=== PATIENT | female | born 1980 | race Caucasian/White ===

== ENCOUNTER 2018-06-19 20:23 | Emergency (ER) | payer SELFPAY ==
[2018-06-19 20:31] VITALS: BP 114/75; PULSE 71; RESP 20; TEMP 37; O2SAT 100
--- NOTE | 2018-06-19 20:58 | DI.RAD_ITS ---
SYMPTOMS/DIAGNOSIS: FALL, RT SIDED PAIN SACRUM AND COCCYX: No acute fracture or dislocation is seen. IMPRESSION: No acute abnormality. AP PELVIS: No bone or joint abnormality is identified. The soft tissues are unremarkable. IMPRESSION: Negative examination.
--- NOTE | 2018-06-19 21:09 | ED.GENADUL_ITS ---
Discharge Plan Disposition Patient Disposition: HOME Condition: Improving Discharge Details Chief Complaint: Nk/Back Pain Clinical Impression: Back pain, Sacroiliac joint pain, Back contusion Primary Care Provider: Ava Fay ED Provider: Julita Canela Home Meds and New Rx's Prescriptions: New cyclobenzaprine 10 mg tablet 10 mg PO TID PRN (Reason: muscle spasm) Qty: 7 RF: 0 ibuprofen 600 mg tablet 600 mg PO QID PRN (Reason: pain) Qty: 20 RF: 0 Continued PNV cmb#95-ferrous fumarate-FA [] 1 EACH tablet 1 ea PO DAILY RF: 0 ranitidine HCl 75 MG tablet 75 mg PO PRN RF: 0 cholecalciferol (vitamin D3) [Vitamin D3] 2,000 UNIT capsule 2,000 unit PO DAILY RF: 0 levothyroxine 50 MCG tablet 50 mcg PO DAILY Qty: 90 RF: 4 Discharge Instructions Instructions: Contusion in Adults (ED), Back Pain (ED) Additional Instructions: Encourage hydration. Gentle stretching and frequent ambulation to help with spasm. Tylenol 1000mg every 6 hours as needed for discomfort, Ibuprofen 600mg as needed every 6 hours. Flexeril as prescribed to help with muscle spasm. Heat or ice to affected area. Salonpas or Lidoderm patches to affected areas, these are available over the counter. If you develop increased pain, fevers/chills, altered sensation, change in bowel or bladder habits, weakness in lower legs or other new/worsening symptoms please seek care urgently once again. Follow up in one week if not improved with primary care. Stand Alone Forms: Work Release Referrals: Ava Fay [Primary Care Provider] - Discharge Data Discharge Date/Time-TO BE ENTERED AT DEPARTURE: 06/19/18 22:39 Medical Decision Making Patient is a 37 year old female, accompanied by , with c/c of right sided back pain after fall this morning. STates that at 0800 this AM she was going down a steep flight of steps while carrying her . States that she slipped on her socks and fell backward landing on the right side of her midback. Patient has midback pain, right buttock pain that can radiate into the proximal posterior right thigh. States that her pain persisted throughout the day. Took Tylenol this AM with some relief of her discomfort. denies incontinence or feeling of urinary retention, no difficulty with BM after fall. Denies abdomenal pain. Did not strike her head, no LOC. Denies neck pain. Denies altered sensation or weakness in LE. No difficulty with ambulation. On exam, patient has maximal tenderness over the sacrum and right SI joint. Neuro exam is intact. No saddle paresthesias. Strength 5/5 in bilateral lower extremities. Reflexes equal bilateral LE. Pain is fairly diffuse with maximal pain as note previously. Patient ambulating normally. Will give Ibuprofen and Lidoderm patch to help with discomfort. Ecchymosis noted on buttock L>R side. Will obtain xr of sacrum/coccyx and pelvis. XR reviewed by radiologist: XR sacrum and coccyx: FINDINGS: Bones/joints: No acute fractures identified. Alignment is within normal limits. Joint space is are preserved. Soft tissues: Unremarkable as seen. IMPRESSION: No acute findings. XR pelvis: FINDINGS: Bones/joints: No fracture or dislocation. Joint spaces are preserved. Soft tissues: Unremarkable as seen. IMPRESSION: No acute findings. Post void residual 0. Patient, her and I discussed findings. No neurologic deficits noted, no evidence of cauda equina. Advised that history is likely associated with contustions. Patient reports that pain is improving but persists. She was offered stronger pain medication but declines at this time. She is ambulating well. Encouraged gentle stretching and frequent ambulation. She was given strict return precautions. Advised on home remedies and OTC medications to help with symptomatic management. Advised f/u with PCP. All of her questions and concerns were addressed, she is in agreement with this plan. [facility] General Mode of arrival: ambulatory . Date/Time Provider Initiated Documentation: 06/19/18 20:24 . Limitations to Documentation: no limitations . Information obtained by: patient and family () . History of Present Illness 37 year old F presents to the emergency department with the chief complaint of right sided back pain, described as moderate, with intensity rated at 6. Quality is described as aching, and is localized to the back. Patient distal (radiates into right buttock). Patient started experiencing this hour(s) (0800 this AM) and it has been constant. Immobilization impr oves symptom(s), Movement worsens symptoms . Patient notes rash (has noted ecchymosis to buttock); denies chest pain, cough, fever/chills, headaches, nausea/vomiting, shortness of breath, syncope and weakness. Patient did receive the following treatments prior to arrival, other (acetaminophen this AM) Related Data Home Medications Medication Instructions Recorded Confirmed PNV cmb#95-ferrous fumarate-FA 1 ea PO DAILY 04/06/16 11/20/16 [] ranitidine HCl 75 mg PO PRN 06/29/16 11/20/16 cholecalciferol (vitamin D3) 2,000 unit PO DAILY 01/01/17 [Vitamin D3] levothyroxine 50 mcg PO DAILY #90 tab 01/01/17 cyclobenzaprine 10 mg PO TID PRN #7 tab 06/19/18 ibuprofen 600 mg PO QID PRN #20 tab 06/19/18 Previous Rx's Medication Instructions Recorded cyclobenzaprine 10 mg PO TID PRN #7 tab 06/19/18 ibuprofen 600 mg PO QID PRN #20 tab 06/19/18 Allergies Allergy/AdvReac Type Severity Reaction Status Date / Time naproxen Allergy Severe Anaphylaxsi Unverified 06/19/18 20:50 s General Stated Complaint: Nk/Back Pain VICKY: 4 Review of Systems Constitutional Reports as per HPI, Denies chills, Denies fatigue, Denies fever(s), Denies headache(s) and Denies weakness Eyes Reports as per HPI, Denies blurry vision, Denies change in vision and Denies loss of vision ENT Denies headache(s) Cardiovascular Reports as per HPI, Denies chest pain and Denies dyspnea Respiratory Denies cough, Denies dyspnea, Denies stridor and Denies wheezing Gastrointestinal Reports as per HPI, Denies abdominal pain, Denies change in stool character, Denies fecal incontinence, Denies nausea and Denies vomiting Genitourinary Reports as per HPI and Denies urinary incontinence Musculoskeletal Reports as per HPI, Reports back pain, Denies joint swelling, Denies limited range of motion, Denies numbness, Reports radiating pain into limb (proximal posterior thigh) and Denies tingling Integumentary/Breasts Reports as per HPI and Denies rash Neurologic Denies headache(s), Denies loss of vision, Denies numbness, Denies tingling and Denies weakness Endocrine Denies fatigue Allergic/Immunologic Denies wheezing [facility] Surgical History Arthroplasty of knee Repair, ACL Social History Smoking/Tobacco Use Status: Never Exam Const General: cooperative, healthy appearing, comfortable, no acute distress, well developed and well groomed Nutritional Appearance: average body habitus and well nourished Orientation: alert, awake and oriented x3 HENMT Head: normal to inspection, no palpable skull fracture, normocephalic and atraumatic Ears: hearing grossly normal bilaterally, external ears normal and TM's normal bilaterally General nose exam: external nose normal Mouth: oral mucosae normal, lip normal and tongue normal Throat: posterior oropharynx normal Eyes General: appearance normal, both eyes and all related structures Visual Mooney: normal visual mooney by confrontation Alignment and Position: alignment normal Periorbital: periorbital findings normal Eyelids: eyelids normal Conjunctivae: conjunctivae normal Pupils: PERRL EOM: EOM intact bilaterally Neck Neck: normal visual inspection, full ROM, no lymphadenopathy, no meningeal signs, trachea midline and supple Chest Chest: normal inspection of the chest, normal palpation of entire chest wall, no crepitus and no localized rib tenderness Resp Effort & Inspection: normal respiratory effort, able to speak in complete sentences and no respiratory distress Auscultation: clear to auscultation bilaterally, no rales, no rhonchi and no wheezes Cardio Rate: regular rate Rhythm: regular rhythm Heart Sounds: S1 normal and S2 normal GI Inspection: normal to inspection, no abdominal wall ecchymosis, no edema and non-distended Palpation: soft, no hepatosplenomegaly, not firm, no guarding, no pulsatile masses, not rigid and nontender Auscultation: normal bowel sounds Back/Spine/Pelvis Back: no CVA tenderness Cervical Spine: normal cervical lordosis and cervical ROM normal Thoracic/Lumbar Spine: thoracic and lumbar spine normal to inspection, No thoraco-lumbar ROM normal (limited, particularly with rotation as this causes increased discomfort rig), No paraspinal tenderness, No thoracic spinal tenderness and straight leg raise positive (right side) Pelvis: no pain with anterior-posterior compression, no pain with lateral compression, buttock ecchymosis (L>R), buttock tenderness on the right, no buttock swelling and no tenderness over symphysis pubis Sacroiliac joints: on the right tender to palpation Sacrum: no ecchymosis and tenderness midline Coccyx: tenderness on direct palpation Skin General skin exam: ecchymosis (as above to buttock) Neuro General: alert, awake, oriented x3, gait normal, tone normal and moves all extremities Cranial Nerves: CN's II-XI intact bilaterally Cognition: normal cognition Speech: speech normal Gait: normal gait Motor: muscle tone normal throughout and strength 5/5 throughout Sensory Exam: no sensory deficits noted (no saddle paresthesias) DTR's: Rt Patellar: 2+, Lt Patellar: 2+, Rt Ankle: 2+ and Lt Ankle: 2+ Plantar Reflexes: Equivocal: bilateral Extrem General: normal to inspection, full ROM, normal capillary refill, no pedal edema and no calf tenderness Psych Appearance: grossly normal and well kempt Mental Status: mental status grossly normal Speech and Movement: speech and movement normal Course Vital Signs Temperature 37.0 C 06/19/18 20:31 Pulse 71 06/19/18 20:31 Respiratory Rate 20 06/19/18 20:31 Blood Pressure 114/75 06/19/18 20:31 Pulse Oximetry 100 06/19/18 20:31 Temperature 37.0 C 06/19/18 20:31 Temperature Source Temporal Artery Scan 06/19/18 20:31 Pulse 71 06/19/18 20:31 Respiratory Rate 20 06/19/18 20:31 Blood Pressure 114/75 06/19/18 20:31 Blood Pressure Position Supine 06/19/18 20:31 Pulse Oximetry 100 06/19/18 20:31 Oxygen Delivery Method Room Air 06/19/18 20:31 Oxygen Flow Rate 0 06/19/18 20:31 Pain Level 6 06/19/18 20:31 Comment 06/19/18 20:31
[2018-06-19] MEDS: Lidocaine 5% Patch 1 PATCH TP (21:10)
[2018-06-19] MEDS: Cyclobenzaprine 10 MG TAB PO (21:11)
[2018-06-19] MEDS: Ibuprofen 600 MG TAB PO (21:11)
[2018-06-19] MEDS: Acetaminophen 500 MG TAB 1000 MG PO (21:11)
--- NOTE | 2018-06-19 21:49 | DI.VRAD_ITS ---
EXAM: XR Sacrum and Coccyx, 2 or More Views EXAM DATE/TIME: 06/19/2018 9:21 PM CLINICAL HISTORY: 37 years old, female; Pain and injury or trauma; Fall; Initial encounter; Blunt trauma (contusions or hematomas); Other: RT sided pain TECHNIQUE: XR XR of the sacrum and coccyx, 2 or more views. COMPARISON: US OB FU/LIMITED-FACIAL/LVOT/RVOT 09/04/2016 6:11 PM FINDINGS: Bones/joints: No acute fractures identified. Alignment is within normal limits. Joint space is are preserved. Soft tissues: Unremarkable as seen. IMPRESSION: No acute findings. Dictated and Authenticated by: Alexis Quintanilla MD. Ordering:FABY Cancino MD
--- NOTE | 2018-06-19 21:51 | DI.VRAD_ITS ---
EXAM: XR Pelvis, 1 or 2 Views EXAM DATE/TIME: 06/19/2018 9:21 PM CLINICAL HISTORY: 37 years old, female; Pain and injury or trauma; Fall; Initial encounter; Blunt trauma (contusions or hematomas); Right; Pelvic region; Pelvic pain; Injury details: Fall, RT sided pain TECHNIQUE: XR pelvis, 1 or 2 views COMPARISON: None. FINDINGS: Bones/joints: No fracture or dislocation. Joint spaces are preserved. Soft tissues: Unremarkable as seen. IMPRESSION: No acute findings. Dictated and Authenticated by: Alexis Quintanilla MD. Ordering:FABY Cancino MD
[2018-06-19 22:16] VITALS: BP 112/70; PULSE 61; RESP 16; TEMP 37; O2SAT 100
[2018-06-19] MEDS: Ibuprofen 600 MG TAB 1200 MG PO (22:35)
[2018-06-19] MEDS: Cyclobenzaprine 10 MG TAB 20 MG PO (22:35)
== END 2018-06-19 22:39 | disposition home or self-care (01) ==
PROVIDERS: Emergency Provider Physician Assistant; PCP Family Medicine
DX: M54.9 Dorsalgia, unspecified (principal); M53.3 Sacrococcygeal disorders, not elsewhere classified; S20.221A Contusion of right back wall of thorax, initial encounter; W10.8XXA Fall (on) (from) other stairs and steps, initial encounter
CPT/HCPCS: 99284; 72170; 72220

== ENCOUNTER 2018-10-28 16:21 | Outpatient (REF) | payer SELFPAY ==
--- NOTE | 2018-10-28 16:10 | PAPFT_PTH ---
PATIENT: Nova Casillas LOC: [facility] U#:[id number] AGE/SX: 38/F ROOM: RE10/28/[address]: Tara Nelson CNM : 1980 BED: DIS: 10/28/2018 SPEC #: [id number] RECD: 10/31/18 12:23 STATUS: [facility]UAN REQ #: [id number] SHERLYN: 10/28/18 16:[address]: Tara Nelson DEPT: [facility] Cytology RECD BY: Sona Lackey ENTERED: 10/31/18 12:24 SP TYPE: PAPFT OTHR DR: Ava Fay Tissues: 1 - CX/ENDOCX FOR PAP SMEARS Procedures: PAP THIN PREP/[facility] Screening HPV DNA PROBE Comments: [id number]
[2018-10-29 14:45] LABS: *AMPHETAMINES SCREEN URINE Negative (Negative); *BARBITURATES SCREEN URINE Negative (Negative); *BENZODIAZEPINES SCREEN URINE Negative (Negative); Cannabinoids THC Negative (Negative); Cocaine Screen,Urine Negative (Negative); METHADONE URINE SCREEN Negative (Negative); OPIATES URINE SCREEN Negative (Negative)
[2018-10-29 15:20] LABS: Tricyclic Antidepressants Negative (Negative)
[2018-10-31 13:44] LABS: Chlamydia Result Negative; GC Result Negative; Specimen Description CERVICAL
[2018-11-04 13:52] LABS: Buprenorphine Negative; Norbuprenorphine Negative
== END 2018-10-28 16:41 ==
LOC: LBN 16:21
PROVIDERS: PCP Family Medicine; Visit Provider Advanced Practice Midwife
DX: Z34.91 Encounter for supervision of normal pregnancy, unspecified, first trimester (principal); Z11.3 Encounter for screening for infections with a predominantly sexual mode of transmission; Z12.4 Encounter for screening for malignant neoplasm of cervix; Z11.51 Encounter for screening for human papillomavirus (HPV)
CPT/HCPCS: 80307; 87491; 87591; 88142; 87086; 87624

== ENCOUNTER 2019-01-20 16:31 | Outpatient (CLI) | payer MEDICAID, SELFPAY ==
[2019-01-23 12:48] LABS: Syphilis Serology (RPR) Negative (Negative)
== END 2019-01-20 16:51 ==
PROVIDERS: PCP Family Medicine; Visit Provider Advanced Practice Midwife
DX: Z11.3 Encounter for screening for infections with a predominantly sexual mode of transmission (principal)
CPT/HCPCS: 36415; 86592; 86780

== ENCOUNTER 2019-03-03 11:51 | Outpatient (CLI) | payer MEDICAID, SELFPAY ==
[2019-03-03 14:46] LABS: Glucose,1 Hr (Glucola) 90 mg/dL (80-140)
[2019-03-03 14:53] LABS: Abs Immature Grans 0.01 k/cumm (0.0-0.09); Absolute Basophil Count 0.01 k/cumm (0.0-0.2); Absolute Eosinophil Count 0.03 k/cumm (0.0-0.7); Absolute Lymphocyte Count 1.26 k/cumm (1.2-3.4); Absolute Neutrophil Count 4.35 k/cumm (1.2-6.7); Basophils % 0.2; Eosinophils % 0.5; HGB 9.9 g/dL (12.0-15.5); Immature Grans % 0.2; Lymphocytes % 20.8; Mean Corp. HGB Concentration 31.9 g/dL (32.0-36.0); Mean Corpuscular Hemoglobin 28.2 pg (27.0-33.0); Mean Corpuscular Volume 88.3 fL (80-95); Mean Platelet Volume 10.4 fL (8.0-11.0); Monocytes % 6.6; Neutrophils % 71.7; Platelet Count 255 x1000/uL (130-400); RBC 3.51 m/cumm (4.00-5.20); RBC Distribution Width 12.3 % (11.7-14.6); White Blood Cell Count 6.06 k/cumm (4.4-10.8)
[2019-03-03 15:59] LABS: Diff Comment RBC Morph Reviewed
== END 2019-03-03 12:11 ==
PROVIDERS: PCP Family Medicine; Visit Provider Obstetrics & Gynecology
DX: Z34.92 Encounter for supervision of normal pregnancy, unspecified, second trimester (principal)
CPT/HCPCS: 36415; 82950; 85025

== ENCOUNTER 2019-05-04 08:02 | Outpatient (CLI) | payer MEDICAID, SELFPAY | END 2019-05-04 08:22 | PROVIDERS: PCP Family Medicine; Visit Provider Obstetrics & Gynecology | DX: O09.523 Supervision of elderly multigravida, third trimester (principal); Z3A.35 35 weeks gestation of pregnancy | CPT/HCPCS: 59025 ==

== ENCOUNTER 2019-05-18 09:07 | Outpatient (CLI) | payer MEDICAID, SELFPAY | END 2019-05-18 09:27 | PROVIDERS: PCP Family Medicine; Visit Provider Obstetrics & Gynecology Gynecology | DX: O09.523 Supervision of elderly multigravida, third trimester (principal); Z3A.37 37 weeks gestation of pregnancy | CPT/HCPCS: 59025 ==

== ENCOUNTER 2019-05-18 13:01 | Outpatient (REF) | payer MEDICAID, SELFPAY | END 2019-05-18 13:21 | LOC: LBN 13:01 | PROVIDERS: PCP Family Medicine; Visit Provider Obstetrics & Gynecology Gynecology | DX: Z34.93 Encounter for supervision of normal pregnancy, unspecified, third trimester (principal); Z36.85 Encounter for antenatal screening for Streptococcus B | CPT/HCPCS: 87081 ==

== ENCOUNTER 2019-05-25 15:10 | Outpatient (CLI) | payer MEDICAID, SELFPAY | END 2019-05-25 15:30 | PROVIDERS: PCP Family Medicine; Visit Provider Obstetrics & Gynecology Gynecology | DX: O09.523 Supervision of elderly multigravida, third trimester (principal); Z3A.38 38 weeks gestation of pregnancy | CPT/HCPCS: 59025 ==

== ENCOUNTER 2019-06-01 09:38 | Outpatient (CLI) | payer MEDICAID, SELFPAY | END 2019-06-01 09:58 | PROVIDERS: PCP Family Medicine; Visit Provider Obstetrics & Gynecology Gynecology | DX: O09.523 Supervision of elderly multigravida, third trimester (principal); Z3A.39 39 weeks gestation of pregnancy | CPT/HCPCS: 59025 ==

== ENCOUNTER 2019-06-08 07:21 | Outpatient (CLI) | payer MEDICAID, SELFPAY | END 2019-06-08 07:41 | LOC: BCD 07:22 → NUR 06-09 04:26 → BCD 02-22 00:35 | PROVIDERS: PCP Family Medicine; Visit Provider Obstetrics & Gynecology | DX: O09.523 Supervision of elderly multigravida, third trimester (principal); Z3A.40 40 weeks gestation of pregnancy | CPT/HCPCS: 59025 ==

== ENCOUNTER 2019-06-08 23:54 | Observation (INO) | payer MEDICAID, SELFPAY | END 2019-06-09 01:34 | disposition home or self-care (01) | LOC: OBS 23:58 | PROVIDERS: Admitting Provider Obstetrics & Gynecology; PCP Family Medicine; Visit Provider Obstetrics & Gynecology | DX: O47.1 False labor at or after 37 completed weeks of gestation (principal); Z3A.40 40 weeks gestation of pregnancy | CPT/HCPCS: G0378 ==

== ENCOUNTER 2019-06-10 00:35 | Inpatient (IN) | payer MEDICAID, SELFPAY ==
[2019-06-10 01:00] LABS: HCT 30.5 % (36.0-46.0); HGB 9.7 g/dL (12.0-15.5); Mean Corp. HGB Concentration 31.8 g/dL (32.0-36.0); Mean Corpuscular Hemoglobin 24.6 pg (27.0-33.0); Mean Corpuscular Volume 77.4 fL (80-95); Mean Platelet Volume 11.4 fL (8.0-11.0); Platelet Count 255 x1000/uL (130-400); RBC 3.94 m/cumm (4.00-5.20); RBC Distribution Width 15.4 % (11.7-14.6); White Blood Cell Count 7.04 k/cumm (4.4-10.8)
[2019-06-10] MEDS: FentaNYL/ROPIvacaine 2 mcg/ml and 0.1% 200 ML CADD Cassette EP (11:06)
[2019-06-10] MEDS: Lactated Ringers 1,000 ML 125 ML IV (13:07)
[2019-06-10] MEDS: Acetaminophen 325 MG TAB 650 MG PO (19:50)
[2019-06-10] MEDS: Ibuprofen 600 MG TAB PO (19:51)
[2019-06-10] MEDS: Calcium Carbonate *TUMS* 500 MG CHEW PO (19:51)
[2019-06-11] MEDS: Ibuprofen 600 MG TAB PO ×4 (04:23→22:49)
[2019-06-11] MEDS: Acetaminophen 325 MG TAB 650 MG PO ×5 (04:24→20:48)
[2019-06-11] MEDS: Docusate Sodium 100 MG CAP PO (08:37)
[2019-06-12] MEDS: Ibuprofen 600 MG TAB PO ×2 (05:43→11:53)
[2019-06-12] MEDS: Acetaminophen 325 MG TAB 650 MG PO ×2 (05:43→11:54)
[2019-06-12] MEDS: Calcium Carbonate *TUMS* 500 MG CHEW PO (05:43)
--- NOTE | 2019-06-12 09:53 | W.PM.PROGNOT ---
Date of Service Date of service: 06/11/19 Time of Service: 09:00 Assessment and Plan Assessment and plan (1) (normal spontaneous vaginal delivery): Status: Acute Assessment and plan: PPD 1. Uncomplicated course. Plan for discharge home tomorrow. Subjective Subjective Interval history since last seen: Doing well. No problems overnight. No pain Minimal lochia. Objective Objective Clinical Data: Vital Signs Pain Level 3 06/12/19 05:43 Intake & Output 06/11/19 06/11/19 06/12/19 11:59 23:59 11:59 Intake Total 1000 / 1000 Balance 1000 / 1000 Intake: IV 1000 / 1000 Laboratory Results WBC 7.04 k/cumm (4.4-10.8) 06/10/19 00:50 RBC 3.94 m/cumm (4.00-5.20) L 06/10/19 00:50 Hgb 9.7 g/dL (12.0-15.5) L 06/10/19 00:50 Hct 30.5 % (36.0-46.0) L 06/10/19 00:50 MCV 77.4 fL (80-95) L 06/10/19 00:50 MCH 24.6 pg (27.0-33.0) L 06/10/19 00:50 MCHC 31.8 g/dL (32.0-36.0) L 06/10/19 00:50 RDW 15.4 % (11.7-14.6) H 06/10/19 00:50 Plt Count 255 x1000/uL (130-400) 06/10/19 00:50 MPV 11.4 fL (8.0-11.0) H 06/10/19 00:50 Patient ABO/Rh O Positive 06/10/19 00:50 Antibody Screen Negative 06/10/19 00:50
[2019-06-12] MEDS: Docusate Sodium 100 MG CAP PO (11:56)
--- NOTE | 2019-06-15 08:33 | HPE_ITS ---
Date of service: 06/11/19 Time of Service: 08:00 Assessment and Plan Assessment and plan (1) Normal labor: Status: Acute Assessment and plan: Patient is admitted in early labor. We will plan for augmentation of labor if no progress. Plan for epidural in active labor. History of Present Illness History of Present Illness Chief Complaint: Early labor Narrative: 38-year-old G3, P2 at 40.5 weeks was admitted overnight with increasingly painful and irregular contractions. She denies any leakage of fluid. She reports good movement. She was seen the evening prior and was 1 cm. On today's cervical exam she was 2 cm dilatation. She is scheduled for induction of labor in the next couple of days for postdates. Her course has been uncomplicated. She is generally healthy. Review of Systems All systems reviewed & are unremarkable except as noted in HPI and below PFSH Social History Smoking/Tobacco Use Status: Never Alcohol Intake: former (occasional social use) Drug use: Never Substance use type: does not use Do you feel safe in your relationship?: Yes Female Reproductive History Menstrual Age of Menarche: 14 control method: none History History 3 Para 2 Hx # Term Pregnancies 2 Multiple births 0 Hx # Pregnancies 0 Ectopic pregnancies 0 AB induced 0 Hx Number of Living Children 2 AB spontaneous 0 Past Pregnancies Del. Date GA/Weeks # Outcome Route Wgt Sex Labor Lgth Anesthes ia Location [facility] 03/07/10 40 Successful vaginal 7 lb 5 oz Female 29 hrs [facility] 11/20/16 38 Successful vaginal 7 lb 11 oz Male 9 hrs [facility] - Dr. Liu Delivery Date: 03/07/10 On 10/28/18 @ 16:29 Deisy Nelson back & OP labor, no meds at all, needed stitches, had anal fissure Delivery Date: 11/20/16 On 10/28/18 @ 15:27 Deisy Nelson uncomplicated Meds Home Medications and Allergies Home Medications Medication Instructions Recorded Confirmed Type cholecalciferol (vitamin D3) 2,000 unit PO DAILY 01/01/17 06/08/19 History [Vitamin D3] cyanocobalamin (vitamin B-12) 500 500 mcg PO DAILY 11/25/18 06/08/19 History mcg tablet prenat.vits,ana,gha-[id number]-[id number] 1 tab PO DAILY 11/25/18 06/08/19 History pantoprazole 20 mg tablet,delayed 20 mg PO DAILY #60 tab 03/30/19 06/08/19 Rx release ferrous sulfate 325 mg (65 mg 325 mg PO BID #60 tab 05/25/19 06/08/19 Rx iron) tablet Allergies Allergy/AdvReac Type Severity Reaction Status Date / Time naproxen Allergy Severe Anaphylaxsi Verified 06/08/19 10:02 s Results Labs Result diagrams: 06/10/19 00:50
--- NOTE | 2019-06-15 08:38 | W.PM.PROGNOT ---
Date of Service Date of service: 06/11/19 Time of Service: 10:00 Assessment and Plan Assessment and plan (1) (normal spontaneous vaginal delivery): Status: Acute Assessment and plan: Status post normal spontaneous vaginal delivery. Continue routine care. Plan for discharge home tomorrow. Subjective Subjective Interval history since last seen: Doing well. No problems overnight. No pain. Minimal lochia. Ambulatory. Objective Objective Clinical Data: Vital Signs Pain Level 6 06/12/19 11:54 Laboratory Results WBC 7.04 k/cumm (4.4-10.8) 06/10/19 00:50 RBC 3.94 m/cumm (4.00-5.20) L 06/10/19 00:50 Hgb 9.7 g/dL (12.0-15.5) L 06/10/19 00:50 Hct 30.5 % (36.0-46.0) L 06/10/19 00:50 MCV 77.4 fL (80-95) L 06/10/19 00:50 MCH 24.6 pg (27.0-33.0) L 06/10/19 00:50 MCHC 31.8 g/dL (32.0-36.0) L 06/10/19 00:50 RDW 15.4 % (11.7-14.6) H 06/10/19 00:50 Plt Count 255 x1000/uL (130-400) 06/10/19 00:50 MPV 11.4 fL (8.0-11.0) H 06/10/19 00:50 Patient ABO/Rh O Positive 06/10/19 00:50 Antibody Screen Negative 06/10/19 00:50
== END 2019-06-12 14:15 | disposition home or self-care (01) | DRG 807 ==
PROVIDERS: Admitting Provider Obstetrics & Gynecology; PCP Family Medicine; Visit Provider Obstetrics & Gynecology
DX: O48.0 Post-term pregnancy (principal); Z37.0 Single live birth; Z3A.40 40 weeks gestation of pregnancy
CPT/HCPCS: 85027; 86850; 86900; 86901; 96360; 96372; 99223; 99233; G0378; J3490

== ENCOUNTER 2019-08-11 04:22 | Outpatient (CLI) | payer MEDICAID, SELFPAY ==
--- NOTE | 2019-08-11 07:45 | DI.US_ITS ---
EXAM: US ABDOMEN CLINICAL HISTORY: Evaluate gallbladder, RT UPPER QUAD PAIN, R10.11 TECHNIQUE: Ultrasound abdomen performed using standard protocol. COMPARISON: No exams were available for comparison FINDINGS: LIVER: Normal size and echogenicity. No focal liver lesions are seen.. GALLBLADDER: No evidence of cholelithiasis. No evidence of wall thickening. No pericholecystic fluid identified. KIDNEYS: Kidneys are symmetric in size. No evidence of renal calculi. No evidence of hydronephrosis. No renal mass or cyst identified. BILIARY SYSTEM: No intrahepatic or extrahepatic biliary ductal dilation. TOLEDO'S SIGN: Negative. PANCREAS: Normal where visualized. SPLEEN: Not enlarged. ABDOMINAL AORTA AND IVC: Visualized portions normal caliber. ASCITES: None seen. IMPRESSION: Normal sonographic appearance of the upper abdomen. DATA REPOSITORY:
== END 2019-08-11 04:42 ==
PROVIDERS: PCP Family Medicine; Visit Provider Obstetrics & Gynecology
DX: R10.11 Right upper quadrant pain (principal)
CPT/HCPCS: 76700

== ENCOUNTER 2020-02-21 02:12 | Outpatient (CLI) | payer MEDICAID, SELFPAY ==
[2020-02-21 17:03] LABS: Abs Immature Grans 0.01 10^3/uL (0.0-0.06); Absolute Basophil Count 0.02 10^3/uL (0.0-0.2); Absolute Eosinophil Count 0.04 10^3/uL (0.0-0.7); Absolute Lymphocyte Count 1.54 10^3/uL (1.2-3.4); Absolute Monocyte Count 0.34 10^3/uL (0.1-0.8); Absolute Neutrophil Count 2.82 10^3/uL (1.2-6.7); Basophils % 0.4; Eosinophils % 0.8; HCT 40.1 % (36.0-46.0); Immature Grans % 0.2; Lymphocytes % 32.3; MCHC 32.4 % (32.0-36.0); MCV 89.5 fL (80-95); MPV 11.5 fL (8.0-11.0); Monocytes % 7.1; Neutrophils % 59.2; Nucleated RBC 0 %; Platelet Count 234 10^3/uL (130-400); RBC 4.48 10^6/uL (3.93-5.22); RDW 11.9 % (11.7-14.6); RDW-SD 38.7 fL; WBC 4.77 10^3/uL (4.4-10.8)
[2020-02-21 18:04] LABS: ALT 17 U/L (14-59); AST 9 U/L (15-37); Albumin 4.1 g/dL (3.4-5.0); Alkaline Phosphatase 99 U/L (46-116); Anion Gap 6.6 mmol/L (3-11); BUN 15 mg/dL (7-18); Bilirubin, Total 0.3 mg/dL (0.2-1.0); CO2 29.4 mmol/L (21.0-32.0); CREATININE 0.86 mg/dL (0.55-1.02); Calcium 9.3 mg/dL (8.5-10.1); Chloride 105 mmol/L (98-107); Glucose 77 mg/dL (74-106); Potassium 4.8 mmol/L (3.5-5.1); Sodium 141 mmol/L (136-145); TSH (W/Ref FT4) 2.25 uIU/mL (0.36-3.74); Total Protein 7.1 g/dL (6.4-8.2)
== END 2020-02-21 02:32 ==
PROVIDERS: PCP Family Medicine; Visit Provider Acupuncturist
DX: R51 Headache (principal); Z86.2 Personal history of diseases of the blood and blood-forming organs and certain disorders involving the immune mechanism; Z83.49 Family history of other endocrine, nutritional and metabolic diseases
CPT/HCPCS: 36415; 80053; 84443; 85025

== ENCOUNTER 2021-10-14 01:49 | Outpatient (CLI) | payer MEDICAID, SELFPAY | END 2021-10-14 01:50 | disposition home or self-care (01) | LOC: LOS 01:50 | PROVIDERS: PCP Family Medicine ==

== ENCOUNTER 2021-10-21 02:10 | Outpatient (CLI) | payer MEDICAID, SELFPAY ==
[2021-10-21 13:00] LABS: Ferritin 17 ng/mL (8-252); TSH 1.78 uIU/mL (0.36-3.74)
[2021-10-21 13:01] LABS: Hemoglobin A1C 5.3 % (<5.7)
[2021-10-21 13:19] LABS: FREE T4 0.77 ng/dL (0.76-1.46)
== END 2021-10-21 02:11 | disposition home or self-care (01) ==
LOC: LOS 02:10
PROVIDERS: PCP Family Medicine; Visit Provider Naturopath
DX: Z13.228 Encounter for screening for other metabolic disorders (principal)
CPT/HCPCS: 36415; 82728; 83036; 84439; 84443

== ENCOUNTER → 2022-02-24 02:02 | Outpatient (CLI) | payer MEDICAID, SELFPAY ==
--- NOTE | 2022-02-24 | DI.MAMMO_ITS ---
Exam(s) MAMMO SCREENING EXAM: MAMMO SCREENING CLINICAL HISTORY: SCREENING, Z12.39 TECHNIQUE: Mammograms were interpreted according to the usual protocol including computer analysis w [employer] CAD system, tomosynthesis and C-view imaging. COMPARISON: None. Baseline examination. FINDINGS: The breasts are composed of heterogeneously dense fibroglandular densities, Breast Density category C . No suspicious masses or suspicious microcalcifications are seen. No skin thickening or abnormal axillary lymph nodes are seen. . IMPRESSION: BI-RADS Category 1, Negative mammogram. Yearly screening mammography is recommended. Breast Density Category C, heterogeneously Dense. The mammogram demonstrates the patient's breast tissue is dense. Dense breast tissue is very common a nd is not abnormal but dense breast tissue can make it harder to find cancer on a mammogram. Also, de nse breast tissue may increase breast cancer risk. This information about the result of the mammogram report was provided to the patient to raise their awareness. Use this report when you speak with the patient about their risks for breast cancer, which includes their family history. At that time, you may recommend additional screening tests (Ultrasound or MRI) as they might be useful based on their r isk. A negative radiographic report should not delay biopsy if a dominant or clinically suspicious mass is present. Up to ten percent of cancers are not identified on mammography. A negative report may reinforce clinical impression. Adenosis and dense breasts may obscure an underlying neoplasm. False positive reports average 6 to 10%.
== END ==
PROVIDERS: PCP Family Medicine; Visit Provider Naturopath
DX: Z12.31 Encounter for screening mammogram for malignant neoplasm of breast (principal); R92.8 Other abnormal and inconclusive findings on diagnostic imaging of breast
CPT/HCPCS: 77063; 77067

== ENCOUNTER 2024-03-08 20:42 | Day surgery (SDC) | payer MEDICAID, SELFPAY | END 2024-03-08 20:43 | disposition home or self-care (01) | LOC: SUR 20:42 | PROVIDERS: PCP Family Medicine; Visit Provider Obstetrics & Gynecology | DX: Z53.09 Procedure and treatment not carried out because of other contraindication (principal) ==

== ENCOUNTER 2024-03-30 06:06 | Day surgery (SDC) | payer SELFPAY ==
[2024-03-30] VITALS (16 sets, daily range): BP systolic 77–107; BP diastolic 51–72; PULSE 65–103; RESP 11–20; TEMP 36.1–36.7; O2SAT 96–100; BMI 13.4
[2024-03-30] MEDS: Lactated Ringers 1,000 ML 125 ML IV (06:49)
--- NOTE | 2024-03-30 07:07 | ANES.PREOP_ITS ---
General Info Date of Service Date Performed: 03/30/24 Height: 5 ft 8 in Weight: 40.1 kg Body Mass Index (BMI): 13.4 Surgical Procedure: Operation Date: 03/30/24 07:40 Proposed Procedure Side Surgeon p Dilation & Curettage with Hysteroscopy Radha Block MD s Endometrial Ablation, Novasure Radha Block MD Meds Allergies and Home Medications Allergies Allergy/AdvReac Type Severity Reaction Status Date / Time naproxen Allergy Severe Anaphylaxsi Verified 03/30/24 06:17 s morphine AdvReac N/V Unverified 03/30/24 06:17 Home Medication ?Medication ?Instructions ?Recorded cholecalciferol (vitamin D3) 50 2,000 unit PO DAILY 01/01/17 mcg (2,000 unit) capsule (Vitamin D3) cyanocobalamin (vitamin B-12) 500 500 mcg PO DAILY 11/25/18 mcg tablet (B-12 DOTS) prenat.vits,ana,[id number] 1 tab PO DAILY 11/25/18 pantoprazole 20 mg tablet,delayed 20 mg PO DAILY #60 tabs 03/30/19 release (Protonix) levothyroxine 50 mcg capsule 50 mcg PO DAILY 03/02/24 magnesium 200 mg tablet 400 mg PO DAILY 03/02/24 ferrous sulfate PO 03/30/24 Current Visit Medications: Current Medications Generic Name Dose Route Start Last Admin Trade Name Freq PRN Reason Stop Dose Admin Ringer's Solution 1,000 mls @ 125 mls/hr 03/30/24 06:00 03/30/24 06:49 IV 04/28/24 23:59 125 mls/hr INFUSION EUSEBIO Administration IV Miscellaneous Supplies 1 each 03/30/24 06:00 Iv Access IV 04/28/24 23:59 DIRECTED EUSEBIO Sodium Chloride 0 ml 03/30/24 06:00 Normal Saline Flush 10 Ml Syr IV 04/28/24 23:59 PRN PRN Sodium Chloride 0 ml 03/30/24 06:00 Normal Saline 10 Ml Vial IJ 04/28/24 23:59 DIRECTED PRN Sterile Water 0 ml 03/30/24 06:00 Water,Injection,Sterile 10 Ml Vial IJ 04/28/24 23:59 DIRECTED PRN PFSH Active Problems Active Problems: Problem Status Onset Code Low iron Acute E61.1 Menorrhagia Acute N92.0 Hypothyroidism, acquired Acute 06/22/16 E03.9 Surgical History Surgical History History of left knee surgery Pt reports hx of 5 surgeries to L. knee. Repair, ACL PER PT STILL NOT REPAIRED (L) Arthroplasty of knee [place] [facility] [facility], 1999 W/O C/O. 2000 REPAIR OF TIBIAL [place]ATE[place]. Tobacco Smoking/Tobacco Use Status: Never Alcohol Alcohol Intake: former Substance Use Substance use: Never Substance use type: does not use Prental History History 2 3 Para 3 Hx # Term Pregnancies 3 Multiple births 0 Hx # Pregnancies 0 Ectopic pregnancies 0 AB induced 0 Hx Number of Living Children 2 AB spontaneous 0 Past Pregnancies Del. Date GA/Weeks # Preg Succ Route Wgt Sex Labor Lgth Anesth esia Location Prov Complic 03/07/10 40 vaginal 3316.894 g Female 29 hrs [place] 11/20/16 38 vaginal 3486.991 g Male 9 hrs [facility] - Dr. Liu 40 No vaginal Male 2 Dr Erickson Delivery Date: 03/07/10 Last Updated by: Deisy Nelson back & OP labor, no meds at all, needed stitches, had anal fissure Delivery Date: 11/20/16 Last Updated by: Deisy Nelson uncomplicated Vital Signs and Lab Results Vital Signs Most Recent Vital Signs in EMR: Most Recent Vital Signs Temp Pulse Resp BP Pulse Ox 36.6 C 69 18 99/72 L 98 03/30/24 06:20 03/30/24 06:20 03/30/24 06:20 03/30/24 06:20 03/30/24 06:20 Point of Care Results Point of Care Results: POC- Test(urine) Negative 03/30/24 06:51 Lab Results 03/30/24 07:05 Blood Type / Crossmatch: 2 No Data to Display Complete Blood Count: 2 No Data to Display Complete Metabolic Panel: 2 No Data to Display Liver Function Panel: 2 No Data to Display Coagulation Panel: 2 No Data to Display Cardiac Panel: 2 No Data to Display Arterial Blood Gas: 2 No Data to Display Venous Blood Gas: 2 No Data to Display Pancreas Panel: 2 No Data to Display Thyroid Panel: 2 No Data to Display Infectious Disease: 2 No Data to Display Blood Cultures: 2 No Data to Display Toxicology Panel: 2 No Data to Display Panel: 2 No Data to Display Anesthesia Assessment and Plan Anesthesia History Personal History: No History of Anesthesia Complications Family History: No Family History of Anesthesia Complications Exercise Tolerance Exercise Tolerance: Metabolic Equivalents>4 Cardiac & Pulmonary Exam Cardiac Exam: Normal S1/S2 Heart Sounds Pulmonary Exam: Clear Bilateral Breath Sounds Implantable Cardiac Device Does patient have a Pacemaker or an ICD?: No Airway Exam Known Difficult Airway: No Mallampati Class: 4 Mouth Opening: Normal (> 3cm) Thyromental Distance: Greater than 3 cm Neck Range of Motion: Full ROM Neck Circumference: Normal Teeth Condition: Normal Dentition ASA Classification ASA Score: ASA 3 Emergency Case?: No NPO Status NPO Status: NPO Clears >2 hours, Solids >8 hours Status Status: Negative HCG Anesthesia Plan Resuscitation Status: Full Code Anesthesia Technique: General Anesthesia Airway Planned: LMA Monitors Used: Standard Monitors
[2024-03-30 07:11] LABS: HCT 35.6 % (36.0-46.0); HGB 11.9 g/dL (11.2-15.7); MCH 30.4 pg (27.0-33.0); MCHC 33.4 % (32.0-36.0); MCV 91 fL (80-95); Platelet Count 193 10^3/uL (130-400); RBC 3.92 10^6/uL (3.93-5.22); RDW 12.5 % (11.7-14.6); RDW-SD 41.2 fL; WBC 3.84 10^3/uL (4.4-10.8)
--- NOTE | 2024-03-30 08:22 | ENDOMET_PTH ---
PATIENT: Nova Casillas LOC: [facility] U#:[id number] AGE/SX: 43/F ROOM: RE03/30/[address]: Radha Block MD : [id number] BED: DIS: 03/30/2024 SPEC #: [id number] RECD: 03/30/24 12:56 STATUS: JUAN REQ #: [id number] SHERLYN: 03/30/24 08:[address]: Radha Block DEPT: Surgical Specimen RECD BY: Kitty Gil ENTERED: 03/30/24 12:56 SP TYPE: Endomet OTHR DR: Ava Fay Tissues: 1 - ENDOMETRIUM JUANA/ROMANA Procedures: GROSS AND MICRO LEVEL 4 Comments: [id number]
[2024-03-30] MEDS: Bupivacaine 0.25% Pres-Free W/EPI 30 ML VIAL (08:30)
--- NOTE | 2024-03-30 09:39 | W.ANESPOSTOP ---
Postoperative Evaluation Date, Time and Location Date Performed: 03/30/24 Time Performed: 09:38 Patient Location: Day Surgery Unit Vital Signs Most Recent Imported Vital Signs: Most Recent Vital Signs Temp Pulse Resp BP Pulse Ox 36.1 C L 68 17 103/63 100 03/30/24 09:20 03/30/24 09:20 03/30/24 09:20 03/30/24 09:20 03/30/24 09:20 Pain Score Most Recent Pain Score: Most Recent Pain Score Pain Level 0 03/30/24 09:00 Assessment Mental Status: Awake (Alert & Oriented to Patient Baseline) Airway and Respiratory Function: Patent airway with normal (patient baseline) respiratory exam Cardiovascular Function: Hemodynamically Stable Hydration Status: Adequately Hydrated Nausea & Vomiting: No Nausea or Vomiting Pain: Pain is Moderate or Severe Postoperative Pain Management: Pain being addressed with medication (Following up with surgeon for discharge plan) Peripheral Nerve Block: Patient did not receive a nerve block Postoperative Comments:: Discussed intraoperative event with patient and at bedside. No further questions at this time.
--- NOTE | 2024-03-30 09:49 | W.PM.OP ---
Date of service: 03/30/24 Time of Service: 08:00 Operative Note Operative Note PRE-OP DIAGNOSIS: Menorrhagia POST-OP DIAGNOSIS: same Brief hypertensive reaction to local marcaine with epinephrine injection PROCEDURE: D&C, hysteroscopy, Novasure endometrial ablation SURGEON: Radha Block Refer to Anesthesia Record ESTIMATED BLOOD LOSS: 10 COMPLICATIONS: Other (brief hypertensive reaction to marcaine with epi injection with some ekg changes - see anesthesia notes for details. ) Patient was transported to: same day Patient's condition: stable Indications: Menorrhagia. Declined hormonal management. Findings: Normal appearing external genitalia, vagina, cervix and uterine cavity. Procedure Description: After informed consent was signed the patient was taken to the operating room and given General room air anesthesia.? SCDs were placed on her legs.? She was prepped and draped in the dorsal lithotomy position in the [facility].? A time out was performed. Her bladder was drained of urine if not done just prior to arrival to the room.? Exam under anesthesia revealed normal external genitalia, vagina normal for age and a normal sized uterus. A speculum was placed into the vagina to reveal the cervix.? The anterior lip of the cervix was grasped with a single tooth tenaculum.? A paracervical block was given with 10ml of 0.25% marcaine with epinephrine. Immediately after this the pt experienced a brief hypertensive episode with some ekg changes - see anesthesia note for details. When things returned to normal the procedure was continued.? The cervical length was measured with a large dilator. The cervix was then dilated until a uterine sound could be inserted to measure the total length. The?cavity length was then calculated at 5cm. The hysteroscope was assembled and the uterine cavity was visualized. No obvious abnormalities were noted. A sharp curettage was performed. The novasure device was opened and the cavity length set. It was inserted into the endometrial cavity and the width was measured at 3.1cm. The cavity assessment was performed and passed. Power was 85. The device was then deployed for the appropriate amount of time. The device was removed and the wand inspected and appeared thoroughly charred. The hysteroscope was again inserted into the endometrial cavity and it appeared to be thoroughly treated. It was removed from the endometrial cavity. The tenaculum was removed from the cervix with good hemostasis.? The speculum was removed from the vagina. The patient was placed back into the supine position.? She was moved to the stretcher and taken to the recovery room in stable condition.
[2024-03-30] MEDS: Acetaminophen 500 MG TAB 1000 MG PO (09:58)
--- NOTE | 2024-03-30 14:24 | PDOC.DSDIS_ITS ---
Date of service: 03/30/24 Time of Service: 10:00 Discharge Plan Disposition Patient Disposition: Home Condition: Stable Discharge Details Attending Provider: Radha Block Primary Care Provider: Ava Fay Home Meds and New Rx's Prescriptions: No Action prenat.vits,ana,[id number] tablet 1 tab PO DAILY cyanocobalamin (vitamin B-12) [B-12 DOTS] 500 mcg tablet 500 mcg PO DAILY levothyroxine 50 mcg capsule 50 mcg PO DAILY magnesium 200 mg tablet 400 mg PO DAILY pantoprazole [Protonix] 20 mg tablet,delayed release (DR/EC) 20 mg PO DAILY Qty: 60 2RF cholecalciferol (vitamin D3) [Vitamin D3] 2,000 UNIT capsule 2,000 unit PO DAILY ondansetron 4 mg tablet,disintegrating 4 mg PO Q6H PRN (Reason: nausea and vomiting) Qty: 30 0RF ferrous sulfate [Iron (ferrous sulfate)] PO Discharge Instructions Stand Alone Forms: Anesthesia Discharge Inst., DSU 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
--- NOTE | 2024-03-31 12:24 | PDOC.ANES ---
Date of service: 03/31/24 Time of Service: 12:24 Anesthesia Note Report Anesthesia Note: Reached patient via telephone and followed up with post operative nausea. Patient reported she is feeling better today, able to keep down fluids, and the oral zofran Dr. Neal wrote is helping. Patient encouraged to call back with any additional concerns.
== END 2024-03-30 10:41 | disposition home or self-care (01) ==
PROVIDERS: PCP Family Medicine; Visit Provider Obstetrics & Gynecology
PROC: 0UDB8ZZ Extraction of Endometrium, Via Natural or Artificial Opening Endoscopic (ICD-10-PCS; CPT 58558; principal; 2024-03-30 07:30)
PROC: (CPT 58353; 2024-03-30 07:30)
DX: N92.0 Excessive and frequent menstruation with regular cycle (principal); R94.31 Abnormal electrocardiogram [ECG] [EKG]; I10 Essential (primary) hypertension; T88.59XA Other complications of anesthesia, initial encounter; T41.3X5A Adverse effect of local anesthetics, initial encounter; Y92.234 Operating room of hospital as the place of occurrence of the external cause
CPT/HCPCS: 58563; 36415; 81025; 85027; 86850; 86900; 86901; 88305; J0665; J1100; J2003; J2250; J2405; J2704